=== PATIENT | female | born 1995 | race Caucasian/White ===

== ENCOUNTER 2024-04-30 22:28 | Emergency (ER) | payer MEDICAID ==
[~2024-04-30] VITALS: Ht 167.6 cm; Wt 65.8 kg
[2024-04-30 22:34] VITALS: BP 121/78; TEMP 98; O2SAT 97
[2024-04-30] MEDS ORDERED: predniSONE 20 MG TABLET ONE (22:57)
[2024-04-30] MEDS ORDERED: FAMOTIDINE (20 MG) 20 MG TABLET ONE (22:57)
[2024-04-30] MEDS ORDERED: LORATADINE 10 MG TABLET ONE (22:58)
[2024-04-30] MEDS: FAMOTIDINE (20 MG) 20 MG TABLET PO ONE (23:05)
[2024-04-30] MEDS: LORATADINE 10 MG TABLET PO SCH (23:05)
[2024-04-30] MEDS: predniSONE 10 MG TABLET PO ONE (23:05)
[2024-05-01] MEDS ORDERED: LORA10TA7 PO (01:08)
[2024-05-01] MEDS ORDERED: FAMO20TA8 PO (01:08)
[2024-05-01] MEDS ORDERED: PRED50TA PO (01:08)
== END 2024-05-01 01:12 | disposition home or self-care (01) ==
LOC: ER 22:30
DX: T78.40XA Allergy, unspecified, initial encounter (principal); L50.9 Urticaria, unspecified; Z88.7 Allergy status to serum and vaccine; Z87.39 Personal history of other diseases of the musculoskeletal system and connective tissue; X58.XXXA Exposure to other specified factors, initial encounter
CPT/HCPCS: 99284; J7512 ×2